=== PATIENT | male | born 1990 | race Caucasian/White ===

== ENCOUNTER 2023-08-04 16:28 | Emergency (ER) | payer OTHER, SELFPAY ==
[2023-08-04] VITALS (7 sets, daily range): BP systolic 108–115; BP diastolic 64–72; PULSE 93–97; RESP 16–18; TEMP 36.4–37.1; O2SAT 98–100
--- NOTE | ~2023-08-04 | XR_ITS ---
XR chest 1V portable 08/04/2023 17:34 Indication: Pleuritic chest pain Procedure: AP portable chest Comparison: No prior studies for comparison. Findings: Shallow inspiration. Bibasilar airspace disease may represent atelectasis or developing pne umonia. No significant effusion or pneumothorax. Impression: 1: Bibasilar airspace disease, atelectasis versus pneumonia. Reviewed, dictated and finalized at location A. Impression: 1: Bibasilar airspace disease, atelectasis versus pneumonia.
--- NOTE | 2023-08-04 16:40 | ED.SKABFB ---
HPI - Skin/Abscess/Foreign Bdy General Chief complaint: Skin/Abscess/Foreign Body Stated complaint: right arm redness and swelling Time Seen by Provider: 08/04/23 16:40 Source: patient Mode of arrival: ambulatory Limitations: no limitations History of Present Illness HPI narrative: 33-year-old male with a history of IVDA( for 11 years), hepatitis-C presents to the ER with a 4 day history of -- fever/ chills -- upper back pain which is worse on deep breathing. No cough or sputum production. No shortness of breath. -- Right erythema/pain /swelling with tender swelling of right cubital vein complaint: rash Onset (ago): day(s) ( 4 days) Tetanus up to date: no Location: RUE Severity: severe Quality: aching Pain Consistency: constant Relieving factors: none Exacerbating factors: none Associated symptoms: denies other symptoms, fever, chills and rigors Treatments prior to arrival: none Related Data Home Medications Medication Instructions Recorded Confirmed No Home Medications 08/04/23 08/04/23 Allergies Allergy/AdvReac Type Severity Reaction Status Date / Time strawberry Allergy Rash Verified 08/04/23 16:36 Review of Systems Review of Systems: All systems reviewed & are unremarkable except as noted in HPI and below Constitutional: Constitutional: Reports chills and Reports fever(s) Eyes: Eyes: Reports as per HPI and Reports no additional eye complaints ENT: Reports system reviewed and no additional complaints, except as documented and Reports as per HPI Cardiovascular: Cardiovascular: Reports as per HPI and Reports no additional cardiovascular complaints Respiratory: Respiratory: Reports as per HPI and Reports no additional respiratory complaints Comments: upper back pain which is made worse by deep breathing Gastrointestinal: Gastrointestinal: Reports as per HPI and Reports no additional gastrointestinal complaints Genitourinary: Genitourinary: Reports no additional male genitourinary complaints and Reports as per HPI Musculoskeletal: Musculoskeletal: Reports no additional musculoskeletal complaints and Reports as per HPI Integumentary/Breasts: Skin/Breast: Reports system reviewed and no additional complaints, except as docu and Reports as per HPI Comments: right arm swelling/redness Neurologic: Reports system reviewed and no additional complaints, except as documented and Reports as per HPI Psychiatric: Psychiatric: Reports no additional psychiatric complaints and Reports as per HPI Endocrine: Endocrine: Reports no additional endocrine complaints and Reports as per HPI Hematologic/Lymphatic: Hematologic/Lymphatic: Reports no additional hematologic/lymphatic complaints and Reports as per HPI Allergic/Immunologic: Allergic/Immunologic: Reports no additional allergic/immunologic complaints [facility] Social History Social History (Updated 08/04/23 @ 17:08 by Melquiades Goodwin MD) Social History: smoker. IV drug abuser Exam Const: General: ill appearing Nutritional Appearance: well nourished Orientation/consciousness: patient oriented x3 Limitations: no limitations HENMT: Head: normal to inspection Ears: external ears normal Face/Nose/Sinus: Normal external nose present Face and sinus: normal facial exam Mouth: Yes Normal oral and palatal mucosa present Throat: posterior oropharynx normal Eyes: Conjunctivae: conjunctivae normal Pupils: Equal, round and reactive pupils present EOM: EOMs intact bilaterally Direct Ophthalmoscopy: no photophobia Neck: Neck: normal visual inspection, no lymphadenopathy and no meningeal signs Chest: Chest palpation & inspection: normal inspection of the chest Resp: Effort & Inspection: normal respiratory effort Auscultation: diminished lung sounds Cardio: Rate: regular rate Rhythm: regular rhythm GI: Auscultation: normal bowel sounds Other: no tenderness/rigidity / rebound. : General: Yes no CVA tenderness Male General Ex
--- NOTE | 2023-08-04 17:21 | PC.NURSE ---
Director Packaging unable to draw labs. ERP aware and is at bedside to perform femoral stick.
[2023-08-04 17:36] LABS: Basophils Absolute Auto 0.04 K/mm3 (0.00-0.10); Basophils Percent Auto 0.3 % (0.0-1.0); Eosinophils Absolute Auto 0.01 K/mm3 (0.02-0.50); Eosinophils Percent Auto 0.1 % (1.0-6.0); Hematocrit 37.5 % (40.0-54.0); Hemoglobin 13.2 g/dL (14.0-18.0); Immature Granulocyte Absolute 0.07 K/mm3 (0.00-0.00); Immature Granulocyte Percent A 0.5 % (0.0-0.0); Immature Platelet Fraction Pct 9.6 % (1.0-7.0); Lymphocytes Absolute Auto 1.09 K/mm3 (1.10-4.50); Lymphocytes Percent Auto 7.9 % (18.0-42.0); Mean Corpuscular HGB Conc 35.2 g/dL (32-36); Mean Corpuscular Hemoglobin 29.8 pg (27.0-31.0); Mean Corpuscular Volume 84.7 fL (78.0-102.0); Mean Platelet Volume 11.5 fl (8.7-11.0); Monocytes Absolute Auto 1.37 K/mm3 (0.10-0.90); Monocytes Percent Auto 9.9 % (2.0-11.0); Neutrophils Absolute Auto 11.23 K/mm3 (1.70-7.20); Neutrophils Percent Auto 81.3 % (50.0-70.0); Platelet Count Result 122 K/mm3 (150-420); Red Blood Count 4.43 M/mm3 (4.70-6.10); Red Cell Distribution Width 12.3 % (11.6-14.4); White Blood Count 13.8 K/mm3 (4.8-10.8)
[2023-08-04 17:49] LABS: INR 1.2; Prothrombin Time 12.6 Seconds (9.50-12.1)
[2023-08-04 17:54] LABS: Lactic Acid Reflex 0.9 mmol/L (0.4-2.0)
[2023-08-04 18:01] LABS: Alanine Aminotransferase 35 U/L (16-63); Albumin Level 2.7 g/dL (3.4-5.0); Alkaline Phosphatase 57 U/L (46-116); Anion Gap 9 mmol/L (8-16); Aspartate Amino Transferase 25 U/L (15-37); Bilirubin,Total 1.5 mg/dL (0.00-1.00); Blood Urea Nitrogen 19 mg/dL (7-18); Calcium 8.6 mg/dL (8.5-10.1); Carbon Dioxide 27 mmol/L (21-32); Chloride 92 mmol/L (98-108); Estimated CRCL calculation 119 ml/min; Estimated Glomerular Filt Rate > 60; Glucose 117 mg/dL (70-99); Lipase 14 U/L (16-77); Osmolality Calculated 269 mOsm/kg (285-295); Potassium 3.8 mmol/L (3.5-5.1); Sodium 128 mmol/L (136-145); Total Protein 7.3 g/dL (6.4-8.2)
[2023-08-04 18:02] LABS: Troponin I < 4.0 ng/L (0.00-60.4)
[2023-08-04] MEDS: TETANUS,DIPHTHERIA,AC PERTUSSIS ADULT 0.5 ML (ADACEL) IM (18:07)
[2023-08-04] MEDS: PIPERACILLIN/TAZ 4.5G/NS 100ML 4.5 GM/100 ML BAG IVPB (18:08)
--- NOTE | 2023-08-04 18:45 | PC.NURSE ---
RN to room to marissahojunior nix. Pt sitting up in bed, taking very shallow breaths. Pt reporting back pain. Pt very diaphoretic. O2 98% on RAERP aware and is at bedside evaluating Pt.
[2023-08-04] MEDS: KETOROLAC 30 MG/ML VIAL (*BKC) IV PUSH (18:55)
--- NOTE | 2023-08-04 19:10 | PC.NURSE ---
PATIENT REPORT RECEIVED FROM LUC MARTIN. PATIENT ACCEPTED AT [facility] IN [place], [place]. PENDING BED ASSIGNMENT FOR TRANSFER.
[2023-08-04] MEDS: LACTATED RINGERS 500 ML 999 ML IV CONT (19:38)
--- NOTE | 2023-08-04 19:45 | PC.NURSE ---
PATIENT GIVEN SANDWICH, CHIPS AND DRINK PER REQUEST. VSS. IVF HUNG.
[2023-08-04] MEDS: VANCOMYCIN 1,500 MG/NS 500 ML 1,500 MG/500 ML BAG 333.33 MG IVPB (19:53)
--- NOTE | 2023-08-04 20:15 | PC.NURSE ---
PATIENT AWAKE AND ALERT, RESTING ON STRETCHER, UPDATE PROVIDED IVF INFUSED. IV ANTIBIOTIC HUNG.
--- NOTE | 2023-08-04 21:40 | PC.NURSE ---
PATIENT AWARE OF BED ASSIGNMENT, NOW AWAITING EMS TRANSPORT TO FACILITY. RN MONITORING. PATIENT DENIES CURRENT NEEDS. BELONGINGS LIST COMPLETED.
--- NOTE | 2023-08-07 12:18 | PC.NURSE ---
08/07/23 positive blood culture received for Group A strep [facility] notified and report faxed to Jody the nurse taking care of him at this time culture faxed at [phone]
--- NOTE | 2023-08-15 13:26 | PC.NURSE ---
PRELIMINARY CULTURES SENT TO [facility] PT HERE FOR OUT PT IV ANTIBIOTIC THERAPY STARTED ON ROCEPHINE 2GM STARTED TODAY UPSTARIRS
== END 2023-08-04 22:06 | disposition short-term general hospital (02) ==
PROVIDERS: Emergency Provider Internal Medicine Critical Care Medicine
DX: L03.113 Cellulitis of right upper limb (principal); J18.9 Pneumonia, unspecified organism; D69.6 Thrombocytopenia, unspecified; F11.11 Opioid abuse, in remission; Z23 Encounter for immunization
CPT/HCPCS: 36415; 71045; 80053; 83605; 83690; 84484; 85025; 85055; 85610; 85730; 87040; 87147; 87181; 90471; 90715; 96365; 96366; 96367; 96375; 99285; J1885; J2543; J3370; J7120

== ENCOUNTER 2023-08-14 13:13 | Outpatient (CLI) | payer OTHER, SELFPAY ==
[2023-08-14] MEDS: cefTRIAXone 2 GM/NS 100 ML 2 GM/100 ML BAG IVPB (13:55)
--- NOTE | 2023-08-14 14:41 | PC.NURSE ---
IV placed in left AC. IV Ceftriaxone 2 gram infused. Line flushed and IV removed without difficulty. Patient to return Suinday for next dose. Patient tolerated well.
== END 2023-08-14 13:14 | disposition home or self-care (01) ==
LOC: CHSTREATRM 13:17
PROVIDERS: PCP Family Medicine
DX: R78.81 Bacteremia (principal); B95.0 Streptococcus, group A, as the cause of diseases classified elsewhere
CPT/HCPCS: 96365; J0696

== ENCOUNTER 2023-08-15 13:19 | Outpatient (CLI) | payer OTHER, SELFPAY ==
--- NOTE | 2023-08-15 13:45 | PC.NURSE ---
Patient here for IV Rocephin infusion. Tolerated IV start well. Sitting up in chair resting, call light at side.
[2023-08-15] MEDS: cefTRIAXone 2 GM/NS 100 ML 2 GM/100 ML BAG IVPB (13:59)
--- NOTE | 2023-08-15 14:30 | PC.NURSE ---
IV Rocephin done. IV site discontinued, dressing applied. Patient to come back at 1330 tomorrow. Patient left floor ambulatory, denies any questions at discharge.
== END 2023-08-15 13:20 | disposition home or self-care (01) ==
LOC: CHSLAB 13:24 → CHSOUTPT 13:35 → CHSTREATRM 13:38
PROVIDERS: PCP Family Medicine
DX: R78.81 Bacteremia (principal); B95.0 Streptococcus, group A, as the cause of diseases classified elsewhere
CPT/HCPCS: 96365; J0696

== ENCOUNTER 2023-08-16 13:30 | Outpatient (CLI) | payer OTHER, SELFPAY ==
--- NOTE | 2023-08-16 13:35 | PC.NURSE ---
Here for OP IV antibiotics
[2023-08-16 14:00] VITALS: BP 120/70; PULSE 94; RESP 18; TEMP 36.1
[2023-08-16] MEDS: cefTRIAXone 2 GM in SODIUM CHLORIDE 0.9% IV 100 ML IVPB (14:03)
[2023-08-16 14:12] VITALS: BMI 28.5
--- NOTE | 2023-08-16 14:18 | PC.NURSE ---
Call to infectious disease, patient did not get eliquis picked up before leaving [facility], call made and asked to call script in to [facility] pharmacy for patient
[2023-08-16 14:20] LABS: Basophils Percent Auto 1.3 % (0.0-1.0); Eosinophils Absolute Auto 0.17 K/mm3 (0.02-0.50); Eosinophils Percent Auto 2.3 % (1.0-6.0); Hematocrit 38.4 % (40.0-54.0); Hemoglobin 12.6 g/dL (14.0-18.0); Immature Granulocyte Absolute 0.03 K/mm3 (0.00-0.00); Immature Granulocyte Percent A 0.4 % (0.0-0.0); Lymphocytes Absolute Auto 2.66 K/mm3 (1.10-4.50); Lymphocytes Percent Auto 35.8 % (18.0-42.0); Mean Corpuscular HGB Conc 32.8 g/dL (32-36); Mean Corpuscular Hemoglobin 29.6 pg (27.0-31.0); Mean Corpuscular Volume 90.1 fL (78.0-102.0); Mean Platelet Volume 9.2 fl (8.7-11.0); Monocytes Absolute Auto 0.41 K/mm3 (0.10-0.90); Monocytes Percent Auto 5.5 % (2.0-11.0); Neutrophils Absolute Auto 4.07 K/mm3 (1.70-7.20); Neutrophils Percent Auto 54.7 % (50.0-70.0); Platelet Count Result 469 K/mm3 (150-420); Red Blood Count 4.26 M/mm3 (4.70-6.10); Red Cell Distribution Width 12.5 % (11.6-14.4); White Blood Count 7.4 K/mm3 (4.8-10.8)
[2023-08-16 14:36] LABS: Alanine Aminotransferase 70 U/L (16-63); Albumin Level 3.1 g/dL (3.4-5.0); Alkaline Phosphatase 76 U/L (46-116); Anion Gap 8 mmol/L (8-16); Aspartate Amino Transferase 32 U/L (15-37); Bilirubin,Total 0.3 mg/dL (0.00-1.00); Blood Urea Nitrogen 10 mg/dL (7-18); Calcium 9.2 mg/dL (8.5-10.1); Carbon Dioxide 30 mmol/L (21-32); Chloride 100 mmol/L (98-108); Estimated CRCL calculation 160 ml/min; Estimated Glomerular Filt Rate > 60; Glucose 97 mg/dL (70-99); Osmolality Calculated 285 mOsm/kg (285-295); Potassium 4.6 mmol/L (3.5-5.1); Sodium 138 mmol/L (136-145); Total Protein 8.5 g/dL (6.4-8.2)
--- NOTE | 2023-08-16 14:37 | PC.NURSE ---
IV site removed, pressure bandage applied, tolerated well, discharged ambulatory to home
== END 2023-08-16 13:31 | disposition home or self-care (01) ==
PROVIDERS: PCP Family Medicine
DX: R78.81 Bacteremia (principal); B95.0 Streptococcus, group A, as the cause of diseases classified elsewhere
CPT/HCPCS: 80053; 85025; 96365; J0696

== ENCOUNTER 2023-08-17 13:49 | Outpatient (RCR) | payer OTHER, SELFPAY ==
--- NOTE | 2023-08-17 14:00 | PC.NURSE ---
Here for OP antibiotics
[2023-08-17 14:05] VITALS: BP 126/79; PULSE 96; RESP 18; TEMP 35.8
[2023-08-17] MEDS: cefTRIAXone 2 GM/NS 100 ML 2 GM/100 ML BAG IVPB (14:19)
[2023-08-17 14:49] VITALS: BMI 28.5
--- NOTE | 2023-08-17 14:52 | PC.NURSE ---
tolerated well, saline lock dc'd advised to go to [facility] to check on eliquis script.
== END 2023-11-15 23:59 | disposition home or self-care (01) ==
LOC: CHSTREATRM 13:49
DX: R78.81 Bacteremia (principal); B95.0 Streptococcus, group A, as the cause of diseases classified elsewhere
CPT/HCPCS: 96365; J0696

== ENCOUNTER 2024-10-06 23:44 | Emergency (ER) | payer OTHER, SELFPAY ==
--- OUTSIDE RECORDS SUMMARY | 2024-10-06 23:45 | XMS_ITS | Clinical Summary ---
Author Organization [facility] Address [facility] [place] [address] Care Team Providers Care Marine Welder Name Role Phone None, Provider Primary Care Provider Unavaila ble Allergies Active Allergy Reactions Criticality Noted Date Comments Strawberries Other (see comment) 08/04/2023 Bumps in mouth Medications No known medications Active Problems Problem Noted Date Diagnosed Date Sepsis ([facility]) 08/04/2023 Cellulitis 08/04/2023 Immunizations Immunization Administration Dates Next Due Fluzone 6 Months+ Quad (0.5 mL Prefilled Syringe ) 08/13/2023 Family History Medical History Relation Comments No Known Problems Mother Relation Status Comments Father Mother Alive Social History Tobacco Use Types Packs/Day Years Used Date Smoking Tobacco: Every Day Cigarettes Smokeless Tobacco: Never Tobacco Cessation:Ready to Q uit: Not Asked; Counseling Given: Not Answered [facility] Utilities Answer Date Recorded In the past 12 months has e [employer], gas, oil, or water [employer] threatened to shut off services in your home? No 08/04/2023 Humiliation, Afraid, Rape, and Kick questionnair e Answer Date Recorded Within the last year, have y ou been afraid of your partner or ex-partner? No 08/04/2023 Within the last year, have y ou been humiliated or emotionally abused in other ways by your partner or ex-partner? No Within the last year, have y ou been kicked, hit, slapped, or otherwise physically hurt by your partner or ex-partner? No 08/04/2023 Within the last year, have y ou been raped or forced to have any kind of sexual activity by your partner or ex-partner? No 08/04/2023 AUDIT-C Answer Date Recorded Q1: How often do you have a drink containing alcohol? Never 08/04/2023 Q2: How many drinks containi ng alcohol do you have on a typical day when you are drinking? Patient does not drink Frequency of Binge Drinking Not on file 07/22 Overall Financial Resource Strain (CARDIA) Answe r Date Recorded How hard is it for you to pa y for the very basics like food, housing, medical care, and heating? Not very hard 08/04/2023 Hunger Vital Sign Answer Date Recorded Within the past 12 months, y ou worried that your food would run out before you got the money to buy more. Never true 08/04/19 24 Within the past 12 months, t he food you bought just didn't last and you didn't have money to get more. Never true 08/04/2023 PRAPARE - Transportation Answer Date Re corded In the past 12 months, has l ack of transportation kept you from medical appointments or from getting medications? No 07/22 In the past 12 months, has l ack of transportation kept you from meetings, work, or from getting things needed for daily living? No 08/04/2023 Housing Stability Vital Sign Answer Venu e Recorded In the last 12 months, was t here a time when you were not able to pay the mortgage or rent on time? No 08/04/2023 In the last 12 months, how many places have you lived? 1 08/04/2023 In the last 12 months, was t here a time when you did not have a steady place to sleep or slept in a [place] (including now)? No 08/04/2023 Sex and Gender Information Value Date Recorded Sex Assigned at Male 10/13/2023 1:36 PM CDT Legal Sex Male 6:22 PM CDT Gender Identity Male 10/13/2023 1:36 PM CDT Sexual Orientation Straight 10/13/2023 1: 36 PM CDT Last Filed Vital Signs Vital Sign Reading Time Taken Comments Blood Pressure 151/117 08/13/2023 7:53 AM CDT Pulse 93 08/13/2023 7:53 AM CDT Temperature 36.6 C (97.9 F) 08/13/2023 7:53 AM CDT Respiratory Rate 20 08/12/2023 8:25 PM CDT Oxygen Saturation 92% 08/13/2023 7:53 AM CDT Inhaled Oxygen Concentration - - Weight 107.9 kg (237 lb 12.8 oz) 2023 11:24 PM CDT Height 195.6 cm (6' 5 ) 08/04/2023 11:2 4 PM CDT Body Mass Index 28.2 08/04/2023 11:24 PM CDT Plan of Treatment Health Maintenance Due Date Last Done Comments Annual Physical 1994 Hepatitis C 2009 Hepatitis B Vaccines (1 of 3 - 19+ 3-dose series) 2010 Pneumococcal Vaccine: Pediat rics (0 to 5 Years) and At-Risk Patients (6 to 49 Years) (1 of 2 - PCV) 2010 COVID-19 Vaccine (2023-2 5 season) 2024 DTaP, Tdap and Td Vaccines ( 2 - Td or Tdap) 08/03/2033 08/04/2023 HPV Vaccines Aged Out No longer eligi ble based on patient's age to complete this topic Meningococcal B Vaccine Aged Out No l onger eligible based on patient's age to complete this topic Meningococcal Vaccine Aged Out No feliciano gary eligible based on patient's age to complete this topic RSV Immunizations Under 20 Months Aged Out No longer eligible based on patient's age to complete this topic Goals Goal Patient Goal Type Associated Problems Recent Progress Patient-Stated? Author Safety Patient/family will have appropriate support at home upon discharge Lifestyle No Darlin Hinds, viticulturist - family caregiver with be involved in care transitions and discharge planning Lifestyle No Darlin Hinds, viticulturist - family caregiver with be involved in care transitions and discharge planning Lifestyle No Darlin Hinds, RN Insurance [employer] Advance Directives * Full Code (Latest Code Status on File) Date Activated Date Inactivated Comments 08/04/2023 11:38 PM 08/13/2023 3:00 PM Care Teams Marine Welder Relationship Specialty Start Date End Date None, Provider, PCP - General UNKNOWN PHYSICIAN SPECIALTY 08/04/23
--- OUTSIDE RECORDS SUMMARY | 2024-10-06 23:45 | XMS_ITS | Referral Summary ---
Author Organization [facility] Address [address] [place] [address] Care Team Providers Care Semaphore Operator Name Role Phone No, Physician Primary Care Provider [phone] Allergies Active Allergy Reactions Criticality Noted Date Comments Ketorolac Pyote Medications naloxone (NARCAN) 4 mg/actuation spray,non-aeroso lIndications:Opi ate-Induced Respiratory Depression Administer 1 spray into affected nostril(s) as needed for opioid reversal 2 each 0 Active Social History Tobacco Use Types Packs/Day Years Used Date Smoking Tobacco: Every Day Smokeless Tobacco: Never Personal Safety Answer Date Recorded Have you ever been in or are you currently in a harmful physical or emotional relationship or is someone making you feel afraid or unsafe? Denies 07/02/2023 Sex and Gender Information Value Date Recorded Sex Assigned at Not on file Legal Sex Male 2:46 PM DIRECTOR OF REIMBURSEMENT Gender Identity Not on file Sexual Orientation Not on file Last Filed Vital Signs Vital Sign Reading Time Taken Comments Blood Pressure 145/83 07/02/2023 9:20 PM DIRECTOR OF REIMBURSEMENT Pulse 92 07/02/2023 9:20 PM DIRECTOR OF REIMBURSEMENT Temperature 35.9 C (96.6 F) 07/02/2023 9:20 PM DIRECTOR OF REIMBURSEMENT Respiratory Rate 16 07/02/2023 9:20 PM DIRECTOR OF REIMBURSEMENT Oxygen Saturation 100% 07/02/2023 9:20 PM DIRECTOR OF REIMBURSEMENT Inhaled Oxygen Concentration - - Weight 108.9 kg (240 lb) 07/02/2023 9:20 PM DIRECTOR OF REIMBURSEMENT Height 195.6 cm (6' 5 ) 07/02/2023 9:20 PM DIRECTOR OF REIMBURSEMENT Body Mass Index 28.46 07/02/2023 9:20 PM DIRECTOR OF REIMBURSEMENT Plan of Treatment Not on file Insurance Care Teams Semaphore Operator Relationship Specialty Start Date End Date No, Physician PCP - General 03/06/19
--- OUTSIDE RECORDS SUMMARY | 2024-10-06 23:45 | XMS_ITS | Clinical Summary ---
Author Organization [facility] Address [address] [place] [address] Care Team Providers Care Flight Engineer Helicopter Name Role Phone No, Physician Primary Care Provider [phone] Allergies Active Allergy Reactions Criticality Noted Date Comments Ketorolac Stevenson Medications naloxone (NARCAN) 4 mg/actuation spray,non-aeroso lIndications:Opi ate-Induced Respiratory Depression Administer 1 spray into affected nostril(s) as needed for opioid reversal 2 each 0 Active Medical History Medical History Date Comments Seizures (HCC) Hepatitis C Social History Tobacco Use Types Packs/Day Years [...] on file Legal Sex Male 2:46 PM PLATE DRYING MACHINE TENDER Gender Identity Not on file Sexual Orientation Not on file Obstetrics History Last Filed Vital Signs Vital Sign Reading Time Taken Comments Blood Pressure 145/83 07/02/2023 9:20 PM PLATE DRYING MACHINE TENDER Pulse 92 07/02/2023 9:20 PM PLATE DRYING MACHINE TENDER Temperature 35.9 C (96.6 F) 07/02/2023 9:20 PM PLATE DRYING MACHINE TENDER Respiratory Rate 16 07/02/2023 9:20 PM PLATE DRYING MACHINE TENDER Oxygen Saturation 100% 07/02/2023 9:20 PM PLATE DRYING MACHINE TENDER Inhaled Oxygen Concentration - - Weight 108.9 kg (240 lb) 07/02/2023 9:20 PM PLATE DRYING MACHINE TENDER Height 195.6 cm (6' 5 ) 07/02/2023 9:20 PM PLATE DRYING MACHINE TENDER Body Mass Index 28.46 07/02/2023 9:20 PM PLATE DRYING MACHINE TENDER Plan of Treatment Health Maintenance Due Date Last Done Comments Depression Screening 1991 Hepatitis C Screening 1991 DTaP/Tdap/Td Vaccine (1 - Tdap) 2002 Varicella Vaccines (1 of 2 - 13+ 2-dose series) 2004 Hepatitis B Screening 2009 Regular Well Visit/Exam 18-64 2009 Pneumococcal vaccine <65 (1 of 2 - PCV) 2010 Influenza Vaccine (#1) 2024 HPV Vaccines Aged Out No longer eligi ble based on patient's age to complete this topic Insurance Care Teams Flight Engineer Helicopter Relationship Specialty Start Date End Date No, Physician PCP - General 03/06/19
[2024-10-06 23:47] VITALS: BP 155/106; PULSE 79; RESP 15; TEMP 36.5; O2SAT 100
--- NOTE | 2024-10-06 23:50 | ED.GENADULT ---
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 complains of his face swelling itching rash on his chest and back and legs and genitals. Denies any problems swallowing. Denies any cough fever sore throat runny nose problems eating or drinking walking talking seeing or hearing voiding or stooling or any other complaints. He has use some Benadryl calamine lotion and hydrocortisone spray without much benefit. Related Data Home Medications Medication Instructions Recorded Confirmed Last Taken Type No Home Medications 10/06/24 10/06/24 Unknown History Allergies Allergy/AdvReac Type Severity Reaction Status Date / Time strawberry Allergy Rash Verified 08/04/23 16:36 Review of Systems Review of Systems: All systems reviewed & are unremarkable except as noted in HPI and below [facility] Social History Social History (Updated 08/04/23 @ 17:08 by Melquiades Goodwin MD) Social History: smoker. IV drug abuser Exam Narrative: White male no apparent distress alert and orient x4 skin got erythematous diffuse macular rash with mild facial swelling. Throat is clear without any exudates neck is supple no lymphadenopathy eyes conjunctiva pink sclera nonicteric lungs are clear heart is regular rate rhythm without murmurs gallops or rubs abdomen is soft and nontender. Genitalia he is has mild to penile swelling. Patient is circumcised. Neurological he is alert and oriented motor and sensory grossly intact. Course Vital Signs Vital signs: Vital Signs Temperature 36.5 C 10/06/24 23:47 Pulse Rate 79 10/06/24 23:47 Respiratory Rate 15 10/06/24 23:47 Blood Pressure 155/106 H 10/06/24 23:47 Pulse Oximetry 100 10/06/24 23:47 Oxygen Delivery Room Air 10/06/24 23:47 Temperature 36.5 C 10/06/24 23:47 Pulse Rate 79 10/06/24 23:47 Respiratory Rate 15 10/06/24 23:47 Blood Pressure 155/106 H 10/06/24 23:47 Pulse Oximetry 100 10/06/24 23:47 Oxygen Delivery Room Air 10/06/24 23:47 Medical Decision Making [facility] Narrative Medical decision making narrative: Patient was placed in room 2 with his significant other. History and physical were performed. Patient was given IM injection of Decadron in the hip. Patient does called in a prescription for prednisone 40 mg daily for the next 5 days he should continue Benadryl 25 mg 1 every 4-6 hours as needed. Return if he gets worse or develops any new symptoms. Follow-up with your primary care provider this week. Differential Diagnosis Differential Diagnosis: Poison monica, cellulitis Vital Signs Vital Signs: Vital Signs Temperature 36.5 C 10/06/24 23:47 Pulse Rate 79 10/06/24 23:47 Respiratory Rate 15 10/06/24 23:47 Blood Pressure 155/106 H 10/06/24 23:47 Pulse Oximetry 100 10/06/24 23:47 Oxygen Delivery Room Air 10/06/24 23:47 Temperature 36.5 C 10/06/24 23:47 Pulse Rate 79 10/06/24 23:47 Respiratory Rate 15 10/06/24 23:47 Blood Pressure 155/106 H 10/06/24 23:47 Pulse Oximetry 100 10/06/24 23:47 Oxygen Delivery Room Air 10/06/24 23:47 Discharge Plan Discharge Clinical Impression: Contact dermatitis due to poison monica Patient Disposition: Home Condition: Stable Instructions: Poison Monica (ED) Additional Instructions: Benadryl 25 mg every 4-6 hours as needed for itching. Take prednisone 40 mg daily starting tomorrow for 5 days. Patient Language: Kiswahili Prescriptions: No Action No Home Medications Follow-up/Referrals: Justin Aguirre MD [Primary Care Provider] - Time of Disposition: 00:12
[2024-10-07] MEDS: dexAMETHasone SOD PHOS INJ 10 MG/ML 1 ML VIAL IM
--- OUTSIDE RECORDS SUMMARY | 2024-10-07 00:19 | XMS_ITS | Clinical Summary ---
Author Organization [facility] Address [facility] [place] [address] Care Team Providers Care Clinical Quality Assurance Associate Name Role Phone None, Provider Primary Care Provider Unavaila ble Allergies Active Allergy Reactions Criticality Noted Date Comments Strawberries Other (see comment) 08/04/2023 Bumps in mouth Medications No known medications Active Problems Problem Noted Date Diagnosed Date Sepsis ([facility]) 08/04/2023 Cellulitis 08/04/2023 Immunizations Immunization Administration Dates Next Due Fluzone 6 Months+ Quad (0.5 mL Prefilled Syringe ) 08/13/2023 Family History Medical History Relation Comments No Known Problems Mother Relation Status Comments Father Mother Alive Social History Tobacco Use Types Packs/Day Years Used Date Smoking Tobacco: Every Day Cigarettes Smokeless Tobacco: Never Tobacco Cessation:Ready to Q uit: Not Asked; Counseling Given: Not Answered [facility] Utilities Answer Date Recorded In the past 12 months has e [employer], gas, oil, or water [employer] threatened to shut off services in your [...] place to sleep or slept in a longterm (including now)? No 08/04/2023 Sex and Gender [...] home upon discharge Lifestyle No Darlin Hinds, gear lapper - family caregiver with be involved in care transitions and discharge planning Lifestyle No Darlin Hinds, gear lapper - family caregiver with be involved in care transitions and discharge planning Lifestyle No Darlin Hinds, RN Insurance [employer] Advance Directives * Full Code (Latest Code Status on File) Date Activated Date Inactivated Comments 08/04/2023 11:38 PM 08/13/2023 3:00 PM Care Teams Clinical Quality Assurance Associate Relationship Specialty Start Date End Date None, Provider, PCP - General UNKNOWN PHYSICIAN SPECIALTY 08/04/23
--- OUTSIDE RECORDS SUMMARY | 2024-10-07 00:19 | XMS_ITS | Referral Summary ---
Author Organization [facility] Address [address] [place] [address] Care Team Providers Care Crepe Sole Scourer Name Role Phone No, Physician Primary Care Provider [phone] Allergies Active Allergy Reactions Criticality Noted Date Comments Ketorolac Walton Medications naloxone (NARCAN) 4 mg/actuation spray,non-aeroso lIndications:Opi [...] on file Legal Sex Male 2:46 PM CDL SERVICE TECHNICIAN Gender Identity Not on file Sexual Orientation Not on file Last Filed Vital Signs Vital Sign Reading Time Taken Comments Blood Pressure 145/83 07/02/2023 9:20 PM CDL SERVICE TECHNICIAN Pulse 92 07/02/2023 9:20 PM CDL SERVICE TECHNICIAN Temperature 35.9 C (96.6 F) 07/02/2023 9:20 PM CDL SERVICE TECHNICIAN Respiratory Rate 16 07/02/2023 9:20 PM CDL SERVICE TECHNICIAN Oxygen Saturation 100% 07/02/2023 9:20 PM CDL SERVICE TECHNICIAN Inhaled Oxygen Concentration - - Weight 108.9 kg (240 lb) 07/02/2023 9:20 PM CDL SERVICE TECHNICIAN Height 195.6 cm (6' 5 ) 07/02/2023 9:20 PM CDL SERVICE TECHNICIAN Body Mass Index 28.46 07/02/2023 9:20 PM CDL SERVICE TECHNICIAN Plan of Treatment Not on file Insurance Care Teams Crepe Sole Scourer Relationship Specialty Start Date End Date No, Physician PCP - General 03/06/19
--- OUTSIDE RECORDS SUMMARY | 2024-10-07 00:19 | XMS_ITS | Clinical Summary ---
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 Gender Identity Not on file Sexual Orientation Not on file Obstetrics History Last Filed Vital Signs Vital Sign Reading Time Taken Comments Blood Pressure 145/83 07/02/2023 9:20 PM SALES WAREHOUSE [employer]IVER Pulse 92 07/02/2023 9:20 PM SALES WAREHOUSE [employer]IVER Temperature 35.9 C (96.6 F) 07/02/2023 9:20 PM SALES WAREHOUSE [employer]IVER Respiratory Rate 16 07/02/2023 9:20 PM SALES WAREHOUSE DRIVER Oxygen Saturation 100% 07/02/2023 9:20 PM SALES WAREHOUSE DRIVER Inhaled Oxygen Concentration - - Weight 108.9 kg (240 lb) 07/02/2023 9:20 PM SALES WAREHOUSE DRIVER Height 195.6 cm (6' 5 ) 07/02/2023 9:20 PM SALES WAREHOUSE DRIVER Body Mass Index 28.46 07/02/2023 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
[2024-10-07 00:20] VITALS: BP 140/82; PULSE 95; RESP 18; O2SAT 99
== END 2024-10-07 00:20 | disposition home or self-care (01) ==
LOC: CHSED 10-07 00:17
PROVIDERS: Emergency Provider Emergency Medicine; PCP Internal Medicine
DX: L23.7 Allergic contact dermatitis due to plants, except food (principal)
CPT/HCPCS: 96372; 99283; J1100

== ENCOUNTER 2025-01-19 11:35 | Emergency (ER) | payer OTHER, SELFPAY ==
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
[2025-01-19 11:41] VITALS: BP 147/113; PULSE 91; RESP 20; TEMP 36.8; O2SAT 98
--- OUTSIDE RECORDS SUMMARY | 2025-01-19 11:41 | XMS_ITS | Clinical Summary ---
Author Organization [facility] Address [address] [place] [address] Care Team Providers Care Roll Trucker Name Role Phone No, Physician Primary Care Provider [phone] No, Physician Unavailable Allergies Active Allergy Reactions Criticality Noted Date Comments Ketorolac [place] Medications naloxone (NARCAN) 4 mg/actuation spray,non-aeroso lIndications:Opi ate-Induced Respiratory Depression Administer 1 spray into affected nostril(s) as needed for opioid reversal 2 each 0 Active ibuprofen (ADVIL,MOTRIN) 200 mg tab/cap Take 3 tablet/capsule (600 mg total) by mouth every 6 (six) hours as needed for pain 60 tablet 5 Active Active Problems Problem Noted Date Diagnosed Date Laceration of right hand with foreign body 10/13 Immunizations Immunization Administration Dates Next Due Tdap 10/10/2024 Medical History Medical History Date Comments Seizures (HCC) Hepatitis C Social History Tobacco Use Types Packs/Day Years Used Date Smoking Tobacco: Every Day Smokeless Tobacco: Never Personal Safety Answer Date Recorded Have you ever been in or are you currently in a harmful physical or emotional relationship or is someone making you feel afraid or unsafe? 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 Gender Identity Not on file Sexual Orientation Not on file Obstetrics History Last Filed Vital Signs Vital Sign Reading Time Taken Comments Blood Pressure 128/90 10/10/2024 11:00 PM CDT Pulse 87 10/10/2024 11:00 PM CDT Temperature 36.9 C (98.5 F) 10/10/2024 7:10 PM CDT Respiratory Rate 18 10/10/2024 9:30 PM CDT Oxygen Saturation 97% 10/10/2024 11:00 PM CDT Inhaled Oxygen Concentration - - Weight 108.9 kg (240 lb) 10/10/2024 7:10 PM CDT Height 190.5 cm (6' 3) 10/10/2024 7:10 PM CDT Body Mass Index 30 10/10/2024 7:10 PM CDT Plan of Treatment Health Maintenance Due Date Last Done Comments Depression Screening 1991 Hepatitis C Screening 1991 Varicella Vaccines (1 of 2 - 13+ 2-dose series) 2004 Hepatitis B Screening 2009 Regular Well Visit/Exam 18-64 2009 Pneumococcal vaccine <65 (1 of 2 - PCV) 2010 HPV Vaccines (1 - 3-dose SCDM series) 2018 Influenza Vaccine (#1) 2025 08/13/2023 DTaP/Tdap/Td Vaccine (3 - Td or Tdap) 10/10/2034, 08/04/2023 Insurance [facility] Care Teams Roll Trucker Relationship Specialty Start Date End Date No, Physician PCP - General 07/22/24 No, Physician 07/22/24
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
[2025-01-19] MEDS: KETOROLAC (*BKC) 60 MG/2 ML VIAL IM (12:23)
[2025-01-19 12:24] LABS: Hematocrit 43.2 % (40.0-54.0); Hemoglobin 14.1 g/dL (14.0-18.0); Immature Granulocyte Percent A 0.5 % (0.0-0.0); Lymphocytes Absolute Auto 1.72 K/mm3 (1.10-4.50); Mean Corpuscular HGB Conc 32.6 g/dL (32-36); Mean Corpuscular Hemoglobin 28.3 pg (27.0-31.0); Mean Corpuscular Volume 86.7 fL (78.0-102.0); Nucleated Red Blood Cells Absolute Auto 0.00 K/mm3 (0.00-0.00); Nucleated Red Blood Cells Perc 0.0 % (0-0.0); Platelet Count Result 297 K/mm3 (150-420); Red Blood Count 4.98 M/mm3 (4.70-6.10); White Blood Count 13.1 K/mm3 (4.8-10.8)
--- NOTE | 2025-01-19 12:33 | PC.NURSE ---
pt unable to urinate, water given to facilitate urination
[2025-01-19 12:46] LABS: Alanine Aminotransferase 31 U/L (6-50); Albumin Level 4.5 g/dL (3.5-5.1); Alkaline Phosphatase 79 U/L (38-126); Anion Gap 12 mmol/L (4-12); Aspartate Amino Transferase 34 U/L (17-59); Bilirubin,Total 0.8 mg/dL (0.2-1.3); Blood Urea Nitrogen 14 mg/dL (9-20); Calcium 9.7 mg/dL (8.4-10.2); Carbon Dioxide 25 mmol/L (22-30); Chloride 102 mmol/L (98-107); Estimated CRCL calculation 170 ml/min; Estimated Glomerular Filt Rate > 60; Glucose 116 mg/dL (65-110); Osmolality Calculated 289 mOsm/kg (285-295); Potassium 4.4 mmol/L (3.4-5.0); Sodium 139 mmol/L (137-145); Total Protein 8.3 g/dL (6.3-8.2)
[2025-01-19 12:47] LABS: Lipase 52 U/L (23-300)
[2025-01-19 13:10] VITALS: BP 146/95; PULSE 78; RESP 20; O2SAT 98
[2025-01-19 13:13] LABS: Add Urine Microscopic? YES; Appearance Urine Cloudy (Clear); Glucose Urine UA Negative (Negative); Leukocyte Esterase Ur 1+ LEU/UL (Negative); Nitrate Urine Positive (Negative); Specific Grav Ur 1.020 (1.010-1.020)
[2025-01-19] MEDS: AZITHROMYCIN 250 MG TABLET 1000 MG PO (13:40)
[2025-01-19] MEDS: cefTRIAXone 500 MG, LIDOCAINE 1% LOCAL INJ 1 ML IM (13:42)
[2025-01-19 13:56] VITALS: BP 142/94; PULSE 84; RESP 20; TEMP 36.9; O2SAT 98
--- NOTE | 2025-01-21 14:32 | PC.NURSE ---
PRELIMINARY URINE CULTURE GRAM NEGETIVE BACILLI ISOLATED PT D/C ON DOXYCICLINE 100MG BID FOR [address] AUGUSTIN NO FURTHER ORDERS NEEDED AT THIS TIME
--- NOTE | 2025-01-24 16:22 | PC.NURSE ---
FINAL URINE CULTURE POSITIVE FOR KLEBSIELLA PNEUMONIAE PT SENT HOME ON DOXYCYCLINE 100 MG BID FOR [address] CORTES NO NEW ORDERS NEEDED
== END 2025-01-19 13:56 | disposition home or self-care (01) ==
PROVIDERS: Emergency Provider Emergency Medicine; PCP Internal Medicine
DX: N39.0 Urinary tract infection, site not specified (principal); N41.0 Acute prostatitis; Z20.2 Contact with and (suspected) exposure to infections with a predominantly sexual mode of transmission
CPT/HCPCS: 36415; 74176; 80053; 81001; 83605; 83690; 85025; 87086; 87186; 87491; 87591; 96372; 99284; A9270; J0696; J1885; J2003